=== PATIENT | male | born 1995 | race African-American/Black ===

== ENCOUNTER 2018-08-29 14:06 | Emergency (ER) | payer MEDICAID ==
[2018-08-29 14:14] VITALS: BP 140/71
--- NOTE | 2018-08-29 14:37 | ER Document Report ---
ED Medical Screen (RME) - General Chief Complaint: High Blood Pressure Stated Complaint: BLOOD PRESSURE CONCERNS Time Seen by Provider: 08/29/18 14:33 Primary Care Provider: SHERRY MCCARTHY FNP-C [Primary Care Provider] - Follow up as needed Notes: Family brought patient in to be checked because they checked his blood pressure at 1:00 today and said that the top number was reading 212 and the bottom number was 102. Patient does not have a history of blood pressure problems. Not on any blood pressure medicine. The reason they did the blood pressure check was that the patient felt warm. They did not try measuring the blood pressure a second time or in the other arm. Patient has autism, is severely mentally challenged, unable to carry on a conversation or follow commands. Looks very comfortable blood pressure here in triage is 140/71. TRAVEL OUTSIDE OF THE [place] IN LAST 30 DAYS: No - Related Data Allergies/Adverse Reactions: No Known Allergies Allergy (Verified 08/29/18 14:21) Past Medical History - Social History Cigarette use (# per day): No Family history: Reviewed & Not Pertinent - Past Medical History Cardiac Medical History: Denies: Hx Hypertension Psychiatric Medical History: Reports: Other - Autistic. Mentally challenged. Review of Systems - Review of Systems Notes: Review of systems obtained from family members because the patient has no capability of answering. We are assuming that there are assessments are correct. CONSTITUTIONAL : Denies fever. CARDIOVASCULAR: Denies chest pain. RESPIRATORY: Denies cough, chest congestion, or shortness of breath. GASTROINTESTINAL: Denies abdominal pain or nausea, vomiting, or diarrhea. GENITOURINARY: Denies difficulty or painful urinating, urinary frequency, blood in urine. Physical Exam - Vital signs Vitals: Temp Pulse Resp BP Pulse Ox 98.3 F 76 18 140/71 H 97 08/29/18 14:11 08/29/18 14:11 08/29/18 14:11 08/29/18 14:11 08/29/18 14:11 Interpretation: Normal Notes: PHYSICAL EXAMINATION: GENERAL: Well-appearing, no acute distress. Does not answer questions or follow commands. Sits very placidly, smiling, occasionally making weird sounds. HEAD: Atraumatic, normocephalic. NECK: Normal range of motion, supple. LUNGS: Breath sounds clear and equal bilaterally. HEART: Regular rate and rhythm without murmurs heard. ABDOMEN: Soft, nontender. No guarding or rebound or masses felt. Course - Vital Signs Vital signs: Temp Pulse Resp BP Pulse Ox 98.3 F 76 18 140/71 H 97 08/29/18 14:11 08/29/18 14:11 08/29/18 14:11 08/29/18 14:11 08/29/18 14:11 Doctor's Discharge - Discharge Clinical Impression: High blood pressure Condition: Stable Disposition: HOME, SELF-CARE Additional Instructions: HIGH BLOOD PRESSURE, NOT TREAT: When your blood pressure was taken today it was elevated. Today's reading was 140/71. We do not think you need to have your blood pressure treated today. Sometimes, stress or illness causes a temporary elevation of your blood pressure. We suggest that you get your blood pressure measured again during the next few days to see if this elevated blood pressure is more than a temporary abnormality. If your blood pressure is greater than 150/90 on each occasion, you must have treatment. Some simple things you can do to help are: If you have blood pressure medicine but aren't using it regularly, start taking it again. Get some aerobic exercise for at least 20 minutes on a daily basis. (See your doctor before beginning a new exercise program.) Eat a low-fat diet. Lose excess weight. Avoid salty foods and avoid adding salt to any of the foods you eat. Avoid diet pills, decongestants, "energizing" herbs, and other medicines that elevate blood pressure. If left untreated, hypertension greatly enhances your risk for developing heart disease and strokes. Please don't ignore this problem. If you check the blood pressure and its high again, check it in the other arm and then repeat both arms in 5 or 10 minutes to see if the blood pressure is still elevated. I think it safe for him to be discharged home. FOLLOW-UP CARE: If you have been referred to a physician for follow-up care, call the physicians office for an appointment as you were instructed or within the next two days. If you experience worsening or a significant change in your symptoms, notify the physician immediately or return to the Emergency Department at any time for re-evaluation. Referrals: SHERRY MCCARTHY FNP-C [Primary Care Provider] - Follow up as needed
== END 2018-08-29 14:46 | disposition home or self-care (01) ==
LOC: ER 14:06
DX: R03.0 Elevated blood-pressure reading, without diagnosis of hypertension (principal)
CPT/HCPCS: 99283

== ENCOUNTER 2019-05-28 13:52 | Emergency (ER) | payer MEDICAID ==
[2019-05-28 13:58] VITALS: BP 112/62
--- NOTE | 2019-05-28 14:26 | ER Document Report ---
ED Medical Screen (RME) - General Chief Complaint: Blood Pressure Problem Stated Complaint: BLOD PRESSURE ISSUES Time Seen by Provider: 05/28/19 14:16 Primary Care Provider: SHERRY MCCARTHY FNP-C [Primary Care Provider] - Follow up as needed Notes: Patient is a 23-year-old male with a history of autism who presents to the emergency department with a concern for high blood pressure. Mother states that the patient has not been to a doctor in a long time and it is hard to know if the patient has any symptoms due to his autism. Mother checked his blood pressure last night and it was 160s over 110s at [facility]. She then rechecked it at home and it was still the same. She came here to the emergency department to have him evaluated. Mother states that he is acting normal. Exam: Patient minimally verbal. No neurological deficits noted. I have greeted and performed a rapid initial assessment of this patient. A comprehensive ED assessment and evaluation of the patient, analysis of test results and completion of medical decision making process will be conducted by an additional ED providers. TRAVEL OUTSIDE OF THE [place] IN LAST 30 DAYS: No - Related Data Allergies/Adverse Reactions: No Known Allergies Allergy (Verified 05/28/19 14:14) Past Medical History - Social History Chew tobacco use (# tins/day): No Frequency of alcohol use: None Drug Abuse: None Family history: Reviewed & Not Pertinent - Past Medical History Cardiac Medical History: Denies: Hx Hypertension Renal/ Medical History: Denies: Hx Peritoneal Dialysis Physical Exam - Vital signs Vitals: Temp Pulse Resp BP Pulse Ox 99.4 F 96 18 112/62 98 05/28/19 13:56 05/28/19 13:56 05/28/19 13:56 05/28/19 13:56 05/28/19 13:56 Course - Vital Signs Vital signs: Temp Pulse Resp BP Pulse Ox 99.4 F 96 18 112/62 98 05/28/19 14:15 05/28/19 14:15 05/28/19 14:15 05/28/19 14:15 05/28/19 14:15 Doctor's Discharge - Discharge Referrals: SHERRY MCCARTHY FNP-C [Primary Care Provider] - Follow up as needed
== END 2019-05-28 16:45 | disposition left against medical advice (07) ==
LOC: ER 13:52
DX: I10 Essential (primary) hypertension (principal); F84.0 Autistic disorder; Z53.20 Procedure and treatment not carried out because of patient's decision for unspecified reasons
CPT/HCPCS: 99281